=== PATIENT | male | born 1990 | race Caucasian/White ===

== ENCOUNTER 2024-05-13 08:19 | Inpatient (IN) | payer MEDICARE, SELFPAY ==
[2024-05-13 08:20] VITALS: BP 152/77; PULSE 123; RESP 20; TEMP 37.1; O2SAT 96
[2024-05-13 08:43] LABS: Basophils % 0.3 %; Hematocrit 34.8 % (37-53); Lymphocytes # 1.1 10^3/uL (0.8-4.8); Lymphocytes % 10.5 %; Mean Corpuscular Volume 87.9 fl (82-101); Mean Platelet Volume 10.3 fL (7.4-10.4); Monocytes # 0.7 10^3/uL (0.2-0.9); Monocytes % 7.2 %; Neutrophils # 8.22 10^3/uL (1.8-7.7); Neutrophils % 81.7 %; Nucleated Red Blood Cells % 0 %; Platelet Count 241 10^3/cmm (157-399); Red Blood Count 3.96 10^6/uL (3.85-5.65); Red Cell Distribution Width 13.4 % (12.1-15.1); White Blood Count 10.07 10^3/uL (3.29-11.43)
--- NOTE | 2024-05-13 08:54 | W.ED.PSYCHS ---
HPI - Psych General: Chief Complaint: Psychiatric Symptoms Stated Complaint: hallucinations Time Seen by Provider: 05/13/24 08:22 Source: patient Mode of arrival: EMS History of Present Illness: 33-year-old male presents to the emergency room via EMS with Alvino CLANCY accompanying. Uncertain exact details did not get report from EMS or law enforcement as to why they were called out to mention the nurses note is that the Alivno CLANCY was told by a neighbor that the patient uses drugs whenever he is able has the money. He is having significant auditory and visual hallucinations. He is not confrontational or agitated at this time. MD complaint: altered mental status Onset (ago): unknown Review of Systems General: Reports: ROS unobtainable due to mental status Physical Exam Const: ORIENTATION/CONSCIOUSNESS: Yes awake HENMT: COMMON NORMALS: normocephalic, atraumatic and hearing grossly normal bilaterally HEAD & SCALP: normocephalic and atraumatic Resp: COMMON NORMALS: normal respiratory effort, No retractions, No use of accessory muscles and clear to auscultation bilaterally AUSCULTATION: clear to auscultation bilaterally Cardio: COMMON NORMALS: regular rhythm and No murmurs present (Cardio) RATE: tachycardic RHYTHM: regular rhythm GI: COMMON NORMALS: Soft to palpation and No hepatosplenomegaly present AUSCULTATION: Yes normoactive bowel sounds PALPATION: Yes Soft to palpation, No Tenderness to palpation present (GI), No Guarding due to palpation present (GI) and Yes No hepatosplenomegaly present Extremity: COMMON NORMALS: normal to inspection, capillary refill normal, no clubbing, cyanosis or edema, no calf tenderness and no pedal edema Skin: COMMON NORMALS: no rashes or lesions noted GENERAL SKIN EXAM: no rashes or lesions noted Course Vital Signs: Vital signs: Vital Signs Temperature 98.8 F 05/13/24 08:20 Pulse Rate 123 H 05/13/24 08:20 Respiratory Rate 25 H 05/13/24 10:40 Blood Pressure 152/77 05/13/24 08:20 Pulse Oximetry 96 05/13/24 08:20 Oxygen Delivery Me thod Room Air 05/13/24 08:20 MDM - Psych Medical Decision Making Patient having acute psychosis with auditory and visual hallucinations. Suspect he may be the end of the influence of an hallucinogenic drug. Does not appear to be under the influence of methamphetamine. His exam and labs are otherwise unremarkable. Given his acute psychosis will place him on a 92-hour hold. Discussed Dr. Glover orders written. No known history of previous prescription for antipsychotic medications or hospitalizations reviewing his chart I do not see that he has been at [facility]. Differential Diagnosis Likely acute psychosis Lab Data 05/13/24 08:35 05/13/24 08:35 Laboratory Results WBC 10.07 10^3/uL (3.29-11.43) 05/13/24 08:35 RBC 3.96 10^6/uL (3.85-5.65) 05/13/24 08:35 Hgb 11.50 g/dL (11.27-16.99) 05/13/24 08:35 Hct 34.8 % (37-53) L 05/13/24 08:35 MCV 87.9 fl (82-101) 05/13/24 08:35 MCH 29.0 pg (27-33) 05/13/24 08:35 MCHC 33.0 g/dL (30-55) 05/13/24 08:35 RDW 13.4 % (12.1-15.1) 05/13/24 08:35 Plt Count 241 10^3/cmm (157-399) 05/13/24 08:35 MPV 10.3 fL (7.4-10.4) 05/13/24 08:35 Neut % (Auto) 81.7 % 05/13/24 08:35 Lymph % (Auto) 10.5 % 05/13/24 08:35 Hamilton % (Auto) 7.2 % 05/13/24 08:35 Eos % (Auto) 0.0 % 05/13/24 08:35 Baso % (Auto) 0.3 % 05/13/24 08:35 Neut # (Auto) 8.22 10^3/uL (1.8-7.7) H 05/13/24 08:35 Lymph # (Auto) 1.1 10^3/uL (0.8-4.8) 05/13/24 08:35 Hamilton # (Auto) 0.7 10^3/uL (0.2-0.9) 05/13/24 08:35 Eos # (Auto) 0.0 10^3/uL (0.0-0.8) 05/13/24 08:35 Baso # (Auto) 0.0 10^3/uL (0.0-0.1) 05/13/24 08:35 Nucleated RBC % (auto) 0 % 05/13/24 08:35 Nucleated RBCs # 0.0 /100WBC 05/13/24 08:35 Sodium 139 mmol/L (136-145) 05/13/24 08:35 Potassium 3.5 mmol/L (3.5-5.1) 05/13/24 08:35 Chloride 104 mmol/L (98-107) 05/13/24 08:35 Carbon Dioxide 21 mmol/L (22-29) L 05/13/24 08:35 Anion Gap 17.5 (5-19) 05/13/24 08:35 BUN 15 mg/dL (6-20) 05/13/24 08:35 Creatinine 0.9 mg/dL (0.7-1.2) 05/13/24 08:35 GFR Calculation 96.0 mL/min (90-130) 05/13/24 08:35 Glucose 115 mg/dL (65-115) 05/13/24 08:35 Calculated Osmolality 290 mOsm/kg (285-295) 05/13/24 08:35 Calcium 9.0 mg/dL (8.5-10.5) 05/13/24 08:35 Total Bilirubin 0.5 mg/dL (0.15-1.2) 05/13/24 08:35 AST 43 U/L (0-40) H 05/13/24 08:35 ALT 31 U/L (0-41) 05/13/24 08:35 Alkaline Phosphatase 77 U/L (40-130) 05/13/24 08:35 Total Protein 7.4 g/dL (6.6-8.7) 05/13/24 08:35 Albumin 4.3 g/dL (3.5-5.2) 05/13/24 08:35 Globulin 3.1 g/dL (1.3-4.6) 05/13/24 08:35 Salicylates < 0.3 mg/dL (3-10) L 05/13/24 08:35 Acetaminophen < 5.0 ug/mL (10-30) L 05/13/24 08:35 Ethyl Alcohol < 10 mg/dL (0-10) 05/13/24 08:35 No radiology studies performed this visit Discharge Plan Discharge Patient Disposition: Admitted As Inpatient Admit Provider: Eren Glover Clinical Impression: Acute psychosis Condition: Stable Coding Level of Care Code ED [employer] for Rose Holland
[2024-05-13 09:02] LABS: Alanine Aminotransferase 31 U/L (0-41); Albumin Level 4.3 g/dL (3.5-5.2); Alkaline Phosphatase 77 U/L (40-130); Anion Gap 17.5 (5-19); Aspartate Amino Transferase 43 U/L (0-40); Blood Urea Nitrogen 15 mg/dL (6-20); Carbon Dioxide 21 mmol/L (22-29); Chloride 104 mmol/L (98-107); Globulin 3.1 g/dL (1.3-4.6); Glucose 115 mg/dL (65-115); Osmolality Calculated 290 mOsm/kg (285-295); Potassium 3.5 mmol/L (3.5-5.1); Sodium 139 mmol/L (136-145); Total Bilirubin 0.5 mg/dL (0.15-1.2); Total Protein 7.4 g/dL (6.6-8.7)
[2024-05-13 09:09] LABS: Acetaminophen < 5.0 ug/mL (10-30); Salicylate < 0.3 mg/dL (3-10)
[2024-05-13 09:11] LABS: Alcohol Level < 10 mg/dL (0-10)
[2024-05-13] MEDS: LORazepam 2 mg/mL INJ 10 mL MDV IM (09:57)
--- NOTE | 2024-05-13 10:00 | PC.NURSE ---
pt very agitated, delusional. pt refuses to stay in ER room 9. x2 security at bedside. pt roaming in ER, talking to TVs. Dr. Fuentes notified and put in orders for Ativan 2mg IM. pt cooperative with staff redirection to admin Ativan. pt currently in room 9 with security.
[2024-05-13] MEDS: ziprasidone 20 mg/mL SDV IM (10:39)
[2024-05-13 10:40] VITALS: RESP 25
--- NOTE | 2024-05-13 11:26 | PC.NURSE ---
96 hr rights reviewed with patient @1025 with assistance of [facility] security officers Eliezer and Smith. Patient currently displays behavior suggesting he is under the influence of some substance. Patient verbalized understandment of rights when reviewed, but patient also making comments about megladonalong and other fictitious creatures. Patient currently experiencing AVH. Patient provided a drink, and asked to remain in room as he was trying to leave the ER when HS was attempting to serve 96 hr rights. Patient copy left with patient.
[2024-05-13 11:42] VITALS: BP 155/78; PULSE 116; RESP 18; TEMP 36.8; O2SAT 96
[2024-05-13 20:46] VITALS: RESP 16
[2024-05-14 06:00] VITALS: RESP 16
--- NOTE | 2024-05-14 10:00 | P.NPUHP_ITS ---
Providers/Chief Complaint 2 Admitting Physician: Eren Glover MD Chief Complaint: hallucinations HPI NPU History of Present Illness Sunday Walsh is a 33 year old male who presented to the emergency department with the following report: Chief Complaint: Psychiatric Symptoms Stated Complaint: hallucinations Time Seen by Provider: 05/13/24 08:22 Source: patient Mode of arrival: EMS History of Present Illness: 33-year-old male presents to the emergency room via EMS with [place] PD accompanying. Uncertain exact details did not get report from EMS or law enforcement as to why they were called out to mention the nurses note is that the [place] PD was told by a neighbor that the patient uses drugs whenever he is able has the money. He is having significant auditory and visual hallucinations. He is not confrontational or agitated at this time. MD complaint: altered mental status Onset (ago): unknown. He was admitted to the neuropsychiatric unit for definitive treatment of those issues. He is unknown to [facility] or the neuropsychiatric unit. He presented reporting: Chief complaint Patient reported coming to the hospital for reasons that were unclear. Patient presented today reporting that he is unaware of any allergies. He was guarded about answering questions. For example when asked where he lives he responded that the ghost writer should not worry about that. So questions were limited in his willingness to allow for prying into his privacy. After getting more comfortable with this ghost writer with some casual conversation we discussed the fact that he was on a hold. We discussed the fact that once we were clear that he was going to be safe we could talk about discharge. He reported that he was from [place] and that at some point before getting here he did have an ACT team which she reported made it so that they would come to him at his house and he would not have to go to the hospital as much. He reported that that was helpful and that he wanted to find out what resources existed around here and he would be comfortable with that assistance. We discussed that the social work team would be here on Thursday and they would be able to get information about his history such that they could talk about what resources exist in this area. He was very upset and resistant to the idea that people thought that he was under the influence of something. We discussed them noting him to have hallucinations and behaving strangely and he talked about this being related to him having his focus be out of balance. He could not really explain what that meant. He reported that he is a loner and he is starting to come out more and so this is part of that adjustment. But then he talked about for the last 20 or 25 years traveling the world are traveling around and having all these exposures at the point seeming to be quite grandiose about the experiences of his life but being very guarded about follow-up questions about what these things that he was saying actually meant. He reports that he does have some marijuana exposure but denies mushrooms or any other substances that would have been missed by a UDS. We discussed respecting his concerns about people prying and that we would take our time learning about his past treatments and hopefully we could discuss medications and any other treatment options that could be beneficial to his situation. Meds NPU Home Medications Medication Instructions Recorded Confirmed Last Taken Type Unable to Assess 05/13/24 05/13/24 Unknown History Allergies Allergy/AdvReac Type Severity Reaction Status Date / Time Unable to Assess Allergy Verified 05/13/24 11:45 Mental Status Exam 2 MSE Comments: This is an obese versus morbidly obese white male in hospital scrubs on with limited grooming and very limited eye contact often having his blanket over his head. Balding with long hair. No abnormal movements except for psychomotor agitation. Somewhat cooperative with exam in mild to moderate distress. Speech was slightly increased rate and normal volume. Mood described as okay, affect paranoid and slightly agitated. Thought process linear and occasionally organized. Thought content: Patient denied suicidal or homicidal ideation, there were no delusions reported but clear paranoid and possibly persecutory delusions noted as well as possible grandiose or bizarre delusions or ideas of reference, no reports of auditory or visual hallucinations. Attention and concentration were mostly intact and memory appeared somewhat unreliable but none were formally tested. He is alert and oriented x person and place. Insight and judgment are limited, impulse control is limited versus impaired. Vitals/I&O/Wt Last Vital Signs Temp 98.3 F 05/13/24 11:42 Pulse 116 H 05/13/24 11:42 Resp 16 05/14/24 06:00 BP 155/78 05/13/24 11:42 Pulse Ox 96 05/13/24 11:42 O2 Del Method Room Air 05/13/24 11:42 Weight last 48 hrs Weight 124.738 kg Data NPU 05/13/24 08:35 05/13/24 08:35 A&P Assessment and plan (1) Acute psychosis: Plan Patient is a 33-year-old white male admitted with reports of confusing and bizarre behavior consistent with some drugs of abuse but none that showed up in the UDS/drug screen who presents today denying any drug use other than may be THC but clearly having had previous psychiatric care. 1. Continue off of medications. Will evaluate for appropriate medications likely antipsychotic. 2. Encourage individual, group and milieu therapy. 3. Continue q-15 minute checks for safety.? 4.? Encourage sober living treatment at the highest level of care to which the patient is willing to commit. Involuntary Hold Information 2 96 Hour Hold: 96 Hour Involuntary Admission: Yes 96 Hour Hold Ending Date: 05/13/24 96 Hour Hold Ending Time: 10:00 Attestations NPU 2 Medical Necessity Statement*: Inpatient hospitalization is medically necessary and the clinically appropriate intervention at this time. We will monitor medications and make changes as indicated. He will be in the hospital for over 2 midnights. Likely length of stay 4 to 6 days. Coding Level of Care Code Acute Code for Chg Fwd Diagnoses Acute psychosis F23
--- NOTE | 2024-05-14 12:02 | PC.NURSE ---
NEW ORDERS RECEIVED FROM DR. BHATIA TO DISCONTINUE ONE TO ONE OBSERVATION. PT EDUCATED ON NEW ORDERS. SITTER REMOVED AT 1200 PM ORDERED. SUPPORT VOICED.
[2024-05-14 14:00] VITALS: BP 136/69; PULSE 113; RESP 20; TEMP 36.8; O2SAT 99
[2024-05-14 17:04] LABS: Add Urine Microscopic? YES; Bilirubin Urine 1+ (Negative); Blood Urine Neg (Negative); Glucose Urine UA Norm (Normal); Ketones Urine Negative (Negative); Leukocyte Esterase Urine Trace (Negative); Nitrate Urine Negative (Negative); Protein Urine Neg (Negative); Urine Appearance Clear (CLEAR); Urine Color Yellow (Yellow); Urobilinogen Urine 4 mg/dL (Negative); pH Urine 6 (5-7)
[2024-05-14 17:05] LABS: Add Urine Culture? No; Bacteria Urine TRACE /hpf; Mucus Urine 2+ /hpf; WBC Urine RARE /hpf (0-5)
[2024-05-14 17:08] LABS: Amphetamines Screen Urine Negative (Negative); Barbiturates Screen Urine Negative (Negative); Benzodiazepines Screen Urine Positive (Negative); Cocaine Screen Urine Negative (Negative); Opiate Screen Urine Negative (Negative); PCP Screen Urine Negative (Negative); THC Screen Urine Positive (Negative)
[2024-05-14 20:04] VITALS: BP 116/79; PULSE 88; RESP 18; O2SAT 92
[2024-05-15 06:00] VITALS: BP 144/92; PULSE 73; RESP 16; O2SAT 97
--- NOTE | 2024-05-15 09:13 | PC.NURSE ---
Patient denies si/hi and avh this morning. He states he is worried about his 3 kitties that he has at home. He has asked multiple staff about when the doctor will be in so he can ask him for tramadol. 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
--- NOTE | 2024-05-15 12:40 | P.NPUPN_ITS ---
Subjective NPU 2 Subjective: Patient presented today reporting that he is doing fine. He continued to focus on discharge sooner rather than later. He continued to focus on somatic complaints and expressed an interest in getting tramadol prescribed reporting that he has significant pain. We did discuss medications and he reported previously being on Abilify Maintena 300 mg q. monthly but reports that it ceased being effective. We discussed restarting Abilify Maintena at 400 mg he reports that that was always too much. He reports that that it is made him tired. He reported that Invega and other medications in that class were never helpful. He reports that his outpatient psychiatrist was working with him to get to a point where he was off of everything except for Adderall which he reports is very helpful. Mental Status Exam 2 MSE Comments: This is an obese versus morbidly obese white male in hospital scrubs on with limited grooming and very limited eye contact often having his blanket over his head. Balding with long hair. No abnormal movements except for psychomotor agitation. Somewhat cooperative with exam in mild to moderate distress. Speech was slightly increased rate and normal volume. Mood described as okay, affect paranoid and slightly agitated. Thought process linear and occasionally organized. Thought content: Patient denied suicidal or homicidal ideation, there were no delusions reported but clear paranoid and possibly persecutory delusions noted as well as possible grandiose or bizarre delusions or ideas of reference, no reports of auditory or visual hallucinations. Attention and concentration were mostly intact and memory appeared somewhat unreliable but none were formally tested. He is alert and oriented x person and place. Insight and judgment are limited, impulse control is limited versus impaired. Vitals/I&O/Wt Last Vital Signs Temp 98.2 F 05/14/24 14:00 Pulse 73 05/15/24 06:00 Resp 16 05/15/24 06:00 BP 144/92 05/15/24 06:00 Pulse Ox 97 05/15/24 06:00 O2 Del Method Room Air 05/15/24 06:00 Weight last 48 hrs Weight 157.453 kg Data NPU 05/13/24 08:35 05/13/24 08:35 A&P Assessment and plan (1) Acute psychosis: Plan Patient is a 33-year-old white male admitted with reports of confusing and bizarre behavior consistent with some drugs of abuse but none that showed up in the UDS/drug screen who presents today denying any drug use other than may be THC but clearly having had previous psychiatric care. 1. Continue off of medications. Will evaluate for appropriate medications likely antipsychotic. 2. Encourage individual, group and milieu therapy. 3. Continue q-15 minute checks for safety.? 4.? Encourage sober living treatment at the highest level of care to which the patient is willing to commit. Involuntary Hold Information 2 96 Hour Hold: 96 Hour Involuntary Admission: Yes 96 Hour Hold Ending Date: 05/13/24 96 Hour Hold Ending Time: 10:00 Attestations NPU 2 Medical Necessity Statement*: Inpatient hospitalization is medically necessary and the clinically appropriate intervention at this time. We will monitor medications and make changes as indicated. Likely length of stay 3-5 days. Coding Level of Care Code Acute Code for Chg Fwd Diagnoses Acute psychosis F23
[2024-05-15 14:00] VITALS: BP 141/88; PULSE 92; RESP 20; TEMP 36.9; O2SAT 98
[2024-05-15 20:04] VITALS: BP 133/90; PULSE 91; RESP 18; O2SAT 97
[2024-05-15] MEDS: cetylpyridinium Lozenge 1 EACH MUCOUS MEM (23:12)
[2024-05-16 06:00] VITALS: BP 132/85; PULSE 90; RESP 17; O2SAT 100
[2024-05-16] MEDS: ibuprofen 600 mg Tablet PO (07:13)
[2024-05-16] MEDS: OLANZapine 5 mg ODT PO ×2 (11:08→22:24)
[2024-05-16 14:00] VITALS: BP 121/76; PULSE 63; RESP 17; TEMP 36.6; O2SAT 96
--- NOTE | 2024-05-16 18:07 | PC.NURSE ---
STAFF PERFORMED RANDOM ROOM CHECK. NO OUTSIDE CONTRABAND WAS FOUND IN PT ROOM OR AREA. PT WAS COOPERATIVE WITH ROOM SEARCH.
--- NOTE | 2024-05-16 21:30 | P.NPUPN_ITS ---
Subjective NPU 2 Subjective: Patient presented today reporting that he is doing okay. He reports working with the social work team on some options. He continues to be resistant to the medication but seems to be more open to the possibility. He reports that they are working on some different options and he felt optimistic about being here versus how he had been feeling over the weekend. Mental Status Exam 2 MSE Comments: This is an obese versus morbidly obese white male in hospital scrubs on with limited grooming and very limited eye contact often having his blanket over his head. Balding with long hair. No abnormal movements except for psychomotor agitation. Somewhat cooperative with exam in mild distress. Speech was slightly increased rate and normal volume. Mood described as okay, affect congruent and less guarded. Thought process linear and occasionally organized. Thought content: Patient denied suicidal or homicidal ideation, there were no delusions reported but clear paranoid and possibly persecutory delusions noted as well as possible grandiose or bizarre delusions or ideas of reference, no reports of auditory or visual hallucinations. Attention and concentration were mostly intact and memory appeared somewhat unreliable but none were formally tested. He is alert and oriented x person and place. Insight and judgment are limited, impulse control is limited versus impaired. Vitals/I&O/Wt Last Vital Signs Temp 98 F 05/16/24 14:00 Pulse 63 05/16/24 14:00 Resp 17 05/16/24 14:00 BP 121/76 05/16/24 14:00 Pulse Ox 96 05/16/24 14:00 O2 Del Method Room Air 05/16/24 06:00 Weight last 48 hrs Weight 157.453 kg Data NPU 05/13/24 08:35 05/13/24 08:35 A&P Assessment and plan (1) Acute psychosis: Plan Patient is a 33-year-old white male admitted with reports of confusing and bizarre behavior consistent with some drugs of abuse but none that showed up in the UDS/drug screen who presents today denying any drug use other than may be THC but clearly having had previous psychiatric care. 1. Continue off of medications. Continue to consider antipsychotic 2. Encourage individual, group and milieu therapy. 3. Continue q-15 minute checks for safety.? 4.? Encourage sober living treatment at the highest level of care to which the patient is willing to commit. Involuntary Hold Information 2 96 Hour Hold: 96 Hour Involuntary Admission: Yes 96 Hour Hold Ending Date: 05/13/24 96 Hour Hold Ending Time: 10:00 Attestations NPU 2 Medical Necessity Statement*: Inpatient hospitalization is medically necessary and the clinically appropriate intervention at this time. We will monitor medications and make changes as indicated. Likely length of stay 2-4 days. Coding Level of Care Code Acute Code for Chg Fwd Diagnoses Acute psychosis F23
[2024-05-16 22:00] VITALS: BP 144/72; PULSE 84; RESP 16; TEMP 36.6; O2SAT 96
[2024-05-17 06:00] VITALS: BP 124/84; PULSE 96; RESP 16; O2SAT 99
[2024-05-17] MEDS: acetaminophen 325 mg Tablet 650 MG PO (08:03)
[2024-05-17] MEDS: OLANZapine 5 mg ODT PO (08:34)
[2024-05-17 12:55] VITALS: BP 124/84; PULSE 96; RESP 16; O2SAT 99
--- NOTE | 2024-05-17 13:05 | P.NPUDS_ITS ---
Diagnoses at Discharge Discharge Diagnosis (1) Acute psychosis: Status: Acute Reason for Visit Reason for Visit: hallucinations Involuntary Hold Information 96 Hour Hold: 96 Hour Involuntary Admission: Yes 96 Hour Hold Ending Date: 05/13/24 96 Hour Hold Ending Time: 10:00 Mental Status Exam MSE Comments: This is an obese versus morbidly obese white male in hospital scrubs on with limited grooming and very limited eye contact often having his blanket over his head. Balding with long hair. No abnormal movements except for psychomotor agitation. Somewhat cooperative with exam in mild distress. Speech was slightly increased rate and normal volume. Mood described as okay, affect congruent and less guarded. Thought process linear and occasionally organized. Thought content: Patient denied suicidal or homicidal ideation, there were no delusions reported but clear paranoid and possibly persecutory delusions noted as well as possible grandiose or bizarre delusions or ideas of reference, no reports of auditory or visual hallucinations. Attention and concentration were mostly intact and memory appeared somewhat unreliable but none were formally tested. He is alert and oriented x person and place. Insight and judgment are limited, impulse control is limited versus impaired. Discharge Data Studies Completed and Pending: Laboratory Results WBC 10.07 10^3/uL (3. 29-11.43) 05/13/24 08:35 RBC 3.96 10^6/uL (3.8 5-5.65) 05/13/24 08:35 Hgb 11.50 g/dL (11.27 -16.99) 05/13/24 08:35 Hct 34.8 % (37-53) L 05/13/24 08:35 MCV 87.9 fl (82-101) 05/13/24 08:35 MCH 29.0 pg (27-33) 05/13/24 08:35 MCHC 33.0 g/dL (30-55) 05/13/24 08:35 RDW 13.4 % (12.1-15.1 ) 05/13/24 08:35 Plt Count 241 10^3/cmm (157 -399) 05/13/24 08:35 MPV 10.3 fL (7.4-10.4 ) 05/13/24 08:35 Neut % (Auto) 81.7 % 05/13/24 08:35 Lymph % (Auto) 10.5 % 05/13/24 08:35 [place] % (Auto) 7.2 % 05/13/24 08:35 Eos % (Auto) 0.0 % 05/13/24 08:35 Baso % (Auto) 0.3 % 05/13/24 08:35 Neut # (Auto) 8.22 10^3/uL (1.8 -7.7) H 05/13/24 08:35 Lymph # (Auto) 1.1 10^3/uL (0.8- 4.8) 05/13/24 08:35 [place] # (Auto) 0.7 10^3/uL (0.2- 0.9) 05/13/24 08:35 Eos # (Auto) 0.0 10^3/uL (0.0- 0.8) 05/13/24 08:35 Baso # (Auto) 0.0 10^3/uL (0.0- 0.1) 05/13/24 08:35 Nucleated RBC % (a uto) 0 % 05/13/24 08:35 Nucleated RBCs # 0.0 /100WBC 05/13/24 08:35 Sodium 139 mmol/L (136-1 45) 05/13/24 08:35 Potassium 3.5 mmol/L (3.5-5 .1) 05/13/24 08:35 Chloride 104 mmol/L (98-10 7) 05/13/24 08:35 Carbon Dioxide 21 mmol/L (22-29) L 05/13/24 08:35 Anion Gap 17.5 (5-19) 05/13/24 08:35 BUN 15 mg/dL (6-20) 05/13/24 08:35 Creatinine 0.9 mg/dL (0.7-1. 2) 05/13/24 08:35 GFR Calculation 96.0 mL/min (90-1 30) 05/13/24 08:35 Glucose 115 mg/dL (65-115 ) 05/13/24 08:35 Calculated Osmolal ity 290 mOsm/kg (285- 295) 05/13/24 08:35 Calcium 9.0 mg/dL (8.5-10 .5) 05/13/24 08:35 Total Bilirubin 0.5 mg/dL (0.15-1 .2) 05/13/24 08:35 AST 43 U/L (0-40) H 05/13/24 08:35 ALT 31 U/L (0-41) 05/13/24 08:35 Alkaline Phosphata se 77 U/L (40-130) 05/13/24 08:35 Total Protein 7.4 g/dL (6.6-8.7 ) 05/13/24 08:35 Albumin 4.3 g/dL (3.5-5.2 ) 05/13/24 08:35 Globulin 3.1 g/dL (1.3-4.6 ) 05/13/24 08:35 Urine Color Yellow (Yellow) 05/14/24 16:27 Urine Appearance Clear (CLEAR) 05/14/24 16:27 Urine pH 6 (5-7) 05/14/24 16:27 Ur Specific Gravit y 1.020 (1.005-1.0 30) 05/14/24 16:27 Urine Protein Neg (Negative) 05/14/24 16:27 Urine Glucose (UA) Norm (Normal) 05/14/24 16:27 Urine Ketones Negative (Negati ve) 05/14/24 16:27 Urine Blood Neg (Negative) 05/14/24 16:27 Urine Nitrate Negative (Negati ve) 05/14/24 16:27 Urine Bilirubin 1+ (Negative) H 05/14/24 16:27 Urine Urobilinogen 4 mg/dL (Negative ) H 05/14/24 16:27 Ur Leukocyte [place] Trace (Negative) H 05/14/24 16:27 Urine RBC None /hpf (0-2) 05/14/24 16:27 Urine WBC Rare /hpf (0-5) 05/14/24 16:27 Ur Squamous Epith Cells None /hpf (0-5) 05/14/24 16:27 Amorphous Sediment Not Reportable 05/14/24 16:27 Urine Bacteria Trace /hpf (NONE) 05/14/24 16:27 Urine Mucus 2+ /hpf 05/14/24 16:27 Salicylates < 0.3 mg/dL (3-10 ) L 05/13/24 08:35 Urine Opiates Scre en Negative ng/mL (N egative) 05/14/24 16:27 Acetaminophen < 5.0 ug/mL (10-3 0) L 05/13/24 08:35 Ur Barbiturates Sc reen Negative ng/mL (N egative) 05/14/24 16:27 Ur Phencyclidine S crn Negative ng/mL (N egative) 05/14/24 16:27 Ur Amphetamines Sc reen Negative ng/mL (N egative) 05/14/24 16:27 U Benzodiazepines Scrn Positive ng/mL (N egative) H 05/14/24 16:27 Urine Cocaine Scre en Negative ng/mL (N egative) 05/14/24 16:27 U Marijuana (THC) Screen Positive ng/mL (N egative) H 05/14/24 16:27 Ethyl Alcohol < 10 mg/dL (0-10) 05/13/24 08:35 Vitals: Last Vital Signs Temp 97.9 F 05/16/24 22:00 Pulse 96 05/17/24 12:55 Resp 16 05/17/24 12:55 BP 124/84 05/17/24 12:55 Pulse Ox 99 05/17/24 12:55 O2 Del Method Room Air 05/17/24 06:00 Discharge Plan Discharge Patient Disposition: Home Condition: Stable Prescriptions: No Action Unable to Assess Discharge Orders: Discharge Order (Routine); Ordered 05/17/24 Ordered By: Eren Glover Discharge Diet: Regular Discharge Activity: Resume usual activity Patient Instructions: Help Prevent Suicide (DC), Opioid Safety Discharge Attestations [facility]PU Time Spent in Discharge Care*: less than 30 min Specific Discharge Activities: Specific discharge activities: educating patient, discussing with correctional casework specialist/social workers/dc planners, documenting/other paperwork and evaluating patient/reviewing data Coding Level of Care Code Acute Code for Chg Fwd Diagnoses Acute psychosis F23
== END 2024-05-17 15:35 | disposition home or self-care (01) | DRG 885 ==
LOC: ER 08:55 → NP 10:05
PROVIDERS: Admitting Provider Psychiatry & Neurology Psychiatry; Emergency Provider Family Medicine; Visit Provider Psychiatry & Neurology Psychiatry
DX: F23 Brief psychotic disorder (principal)
CPT/HCPCS: 36415; 80053; 80306; 80307; 81001; 85025; 96372; 97150; 97165; 99285; J2060; J3486

== ENCOUNTER 2024-06-05 02:27 | Emergency (ER) | payer MEDICARE, SELFPAY ==
[2024-06-05 02:28] VITALS: BP 168/101; PULSE 120; RESP 20; TEMP 37; O2SAT 98; BMI 52.4
[2024-06-05] MEDS: ziprasidone 20 mg/mL SDV IM (02:49)
[2024-06-05] MEDS: LORazepam 2 mg/mL INJ 1 mL IM (02:49)
[2024-06-05] MEDS: water for injection-sterile 10 ML 1.2 ML (02:51)
[2024-06-05 02:58] LABS: Basophils % 0.2 %; Eosinophils % 0.1 %; Hematocrit 37.5 % (37-53); Lymphocytes # 1.2 10^3/uL (0.8-4.8); Lymphocytes % 8.2 %; Mean Corpuscular HGB Conc 33.3 g/dL (30-55); Mean Corpuscular Hemoglobin 28.6 pg (27-33); Mean Corpuscular Volume 85.8 fl (82-101); Mean Platelet Volume 10.7 fL (7.4-10.4); Monocytes # 1.1 10^3/uL (0.2-0.9); Monocytes % 7.9 %; Neutrophils # 11.76 10^3/uL (1.8-7.7); Neutrophils % 83.2 %; Nucleated Red Blood Cells % 0 %; Platelet Count 323 10^3/cmm (157-399); Red Blood Count 4.37 10^6/uL (3.85-5.65); Red Cell Distribution Width 13.2 % (12.1-15.1); White Blood Count 14.14 10^3/uL (3.29-11.43)
[2024-06-05 03:17] LABS: Alanine Aminotransferase 34 U/L (0-41); Albumin Level 4.6 g/dL (3.5-5.2); Alkaline Phosphatase 80 U/L (40-130); Anion Gap 20.6 (5-19); Aspartate Amino Transferase 33 U/L (0-40); Blood Urea Nitrogen 32 mg/dL (6-20); Calcium 8.9 mg/dL (8.5-10.5); Carbon Dioxide 18 mmol/L (22-29); Chloride 98 mmol/L (98-107); Creatinine Clr Calc Pharmacy 111.2813; Globulin 3.3 g/dL (1.3-4.6); Glomerular Filtration Rate 57.7 mL/min (90-130); Glucose 123 mg/dL (65-115); Osmolality Calculated 284 mOsm/kg (285-295); Potassium 3.6 mmol/L (3.5-5.1); Sodium 133 mmol/L (136-145); Total Bilirubin 0.7 mg/dL (0.15-1.2); Total Protein 7.9 g/dL (6.6-8.7)
[2024-06-05 03:19] LABS: Acetaminophen < 5.0 ug/mL (10-30); Alcohol Level < 10 mg/dL (0-10); Salicylate < 0.3 mg/dL (3-10)
[2024-06-05 03:20] LABS: Add Urine Microscopic? YES; Amorphous Sediment Urine 1+ /hpf; Bacteria Urine 2+ /hpf; Bilirubin Urine 1+ (Negative); Blood Urine Neg (Negative); Glucose Urine UA Norm (Normal); Hyaline Casts Urine 15-25 /lpf; Ketones Urine 1+ (Negative); Leukocyte Esterase Urine Negative (Negative); Mucus Urine 1+ /hpf; Nitrate Urine Negative (Negative); Protein Urine 1+ (Negative); RBC Urine 0-4 /hpf (0-2); Specific Gravity, Urine 1.025 (1.005-1.030); Squamous Epithelial Cell Urine 0-4 /hpf (0-5); Urine Appearance Clear (CLEAR); Urine Color Dark Yellow (Yellow); Urobilinogen Urine 4 mg/dL (Negative); WBC Urine 0-4 /hpf (0-5); pH Urine 5 (5-7)
[2024-06-05 03:21] LABS: Amphetamines Screen Urine Positive (Negative); Barbiturates Screen Urine Negative (Negative); Benzodiazepines Screen Urine Negative (Negative); Cocaine Screen Urine Negative (Negative); Opiate Screen Urine Negative (Negative); PCP Screen Urine Negative (Negative); THC Screen Urine Positive (Negative)
--- NOTE | 2024-06-05 03:51 | W.ED.PSYCHS ---
HPI - Psych General: Chief Complaint: Psychiatric Symptoms Stated Complaint: MHE Time Seen by Provider: 06/05/24 02:30 History of Present Illness: 33-year-old male with a history is difficult to establish. He is brought in by EMS with police escort because of bizarre behaviors and statements. He is awake and talking, but makes random bizarre statements, essentially word salad. He answers some questions appropriately, and follows some direction at times. Review of Systems General: Reports: ROS unobtainable due to medical condition and Other (Patient at this point is an unreliable historian) Physical Exam Const: EXAM LIMITATIONS: altered mental status and behavioral limitations GENERAL APPEARANCE: disheveled; not combative NUTRITIONAL APPEARANCE: obese ORIENTATION/CONSCIOUSNESS: Yes awake and Yes oriented to person; not oriented to time HENMT: COMMON NORMALS: normocephalic and atraumatic HEAD & SCALP: normocephalic and atraumatic FACE & SINUS: normal facial exam Eye: COMMON NORMALS: Equal, round and reactive pupils present and EOMs intact bilaterally PUPIL: Yes Equal, round and reactive pupils present Neck/C-Spine: GENERAL: Yes trachea midline Chest: CHEST: Yes Symmetrical chest wall rise Resp: COMMON NORMALS: normal respiratory effort, No use of accessory muscles and clear to auscultation bilaterally AUSCULTATION: clear to auscultation bilaterally Cardio: COMMON NORMALS: regular rate and regular rhythm RATE: regular rate RHYTHM: regular rhythm Extremity: COMMON NORMALS: no pedal edema Neuro: SENSORIUM/ORIENTATION: Yes oriented to person and No oriented to time GAIT: Yes Wide-based gait present Psych: APPEARANCE: Yes disheveled ATTITUDE: Yes bizarre ACTIVITY/MOTOR BEHAVIOR: Yes psychomotor agitation and Yes fidgeting SPEECH: Yes excessive and Yes Pressured speech present THOUGHT PROCESS: disorganized and Word salad present (speech) THOUGHT CONTENT: Yes Hallucination(s) present auditory ATTENTION/CONCENTRATION: Yes attention grossly impaired and Yes concentration grossly impaired Course Vital Signs: Vital signs: Vital Signs Temperature 98.6 F 06/05/24 02:28 Pulse Rate 91 06/05/24 08:38 Respiratory Rate 20 H 06/05/24 02:28 Blood Pressure 168/101 06/05/24 08:38 Pulse Oximetry 98 06/05/24 08:38 MDM - Psych Medical Decision Making The patient is clearly intoxicated. Urine drug screen is positive for amphetamines and marijuana. Negative for alcohol. White blood cell count is 14. Creatinine is 1.4, bicarbonate 18. He is given Geodon and Ativan on arrival with some improvement in his symptoms. He is clearly responding to hallucinations in the room and is carrying on conversations with himself. He has a recent admission to the [facility] for similar behaviors. He was not interested in medication at that time. He also did not appear interested in stopping the use of illicit drugs at that point. After medication, patient rested for quite a while. He became more appropriate. He was discharged in stable condition. He is not homicidal or suicidal. Lab Data 06/05/24 02:52 06/05/24 02:52 Laboratory Results WBC 14.14 10^3/uL (3.29-11.43) H 06/05/24 02:52 RBC 4.37 10^6/uL (3.85-5.65) 06/05/24 02:52 Hgb 12.50 g/dL (11.27-16.99) 06/05/24 02:52 Hct 37.5 % (37-53) 06/05/24 02:52 MCV 85.8 fl (82-101) 06/05/24 02:52 MCH 28.6 pg (27-33) 06/05/24 02:52 MCHC 33.3 g/dL (30-55) 06/05/24 02:52 RDW 13.2 % (12.1-15.1) 06/05/24 02:52 Plt Count 323 10^3/cmm (157-399) 06/05/24 02:52 MPV 10.7 fL (7.4-10.4) H 06/05/24 02:52 Neut % (Auto) 83.2 % 06/05/24 02:52 Lymph % (Auto) 8.2 % 06/05/24 02:52 [place] % (Auto) 7.9 % 06/05/24 02:52 Eos % (Auto) 0.1 % 06/05/24 02:52 Baso % (Auto) 0.2 % 06/05/24 02:52 Neut # (Auto) 11.76 10^3/uL (1.8-7.7) H 06/05/24 02:52 Lymph # (Auto) 1.2 10^3/uL (0.8-4.8) 06/05/24 02:52 [place] # (Auto) 1.1 10^3/uL (0.2-0.9) H 06/05/24 02:52 Eos # (Auto) 0.0 10^3/uL (0.0-0.8) 06/05/24 02:52 Baso # (Auto) 0.0 10^3/uL (0.0-0.1) 06/05/24 02:52 Nucleated RBC % (auto) 0 % 06/05/24 02:52 Nucleated RBCs # 0.0 /100WBC 06/05/24 02:52 Sodium 133 mmol/L (136-145) L 06/05/24 02:52 Potassium 3.6 mmol/L (3.5-5.1) 06/05/24 02:52 Chloride 98 mmol/L (98-107) 06/05/24 02:52 Carbon Dioxide 18 mmol/L (22-29) L 06/05/24 02:52 Anion Gap 20.6 (5-19) H 06/05/24 02:52 BUN 32 mg/dL (6-20) H 06/05/24 02:52 Creatinine 1.4 mg/dL (0.7-1.2) H 06/05/24 02:52 GFR Calculation 57.7 mL/min (90-130) L 06/05/24 02:52 Glucose 123 mg/dL (65-115) H 06/05/24 02:52 Calculated Osmolality 284 mOsm/kg (285-295) L 06/05/24 02:52 Calcium 8.9 mg/dL (8.5-10.5) 06/05/24 02:52 Total Bilirubin 0.7 mg/dL (0.15-1.2) 06/05/24 02:52 AST 33 U/L (0-40) 06/05/24 02:52 ALT 34 U/L (0-41) 06/05/24 02:52 Alkaline Phosphatase 80 U/L (40-130) 06/05/24 02:52 Total Protein 7.9 g/dL (6.6-8.7) 06/05/24 02:52 Albumin 4.6 g/dL (3.5-5.2) 06/05/24 02:52 Globulin 3.3 g/dL (1.3-4.6) 06/05/24 02:52 Urine Color Dark yellow (Yellow) A 06/05/24 03:02 Urine Appearance Clear (CLEAR) 06/05/24 03:02 Urine pH 5 (5-7) 06/05/24 03:02 Ur Specific [place] 1.025 (1.005-1.030) 06/05/24 03:02 Urine Protein 1+ (Negative) H 06/05/24 03:02 Urine Glucose (UA) Norm (Normal) 06/05/24 03:02 Urine Ketones 1+ (Negative) H 06/05/24 03:02 Urine Blood Neg (Negative) 06/05/24 03:02 Urine Nitrate Negative (Negative) 06/05/24 03:02 Urine Bilirubin 1+ (Negative) H 06/05/24 03:02 Urine Urobilinogen 4 mg/dL (Negative) H 06/05/24 03:02 Ur Leukocyte Esterase Negative (Negative) 06/05/24 03:02 Urine RBC 0-4 /hpf (0-2) H 06/05/24 03:02 Urine WBC 0-4 /hpf (0-5) H 06/05/24 03:02 Ur Squamous Epith Cells 0-4 /hpf (0-5) H 06/05/24 03:02 Amorphous Sediment 1+ /hpf 06/05/24 03:02 Urine Bacteria 2+ /hpf (NONE) H 06/05/24 03:02 Hyaline Casts 15-25 /lpf H 06/05/24 03:02 Urine Mucus 1+ /hpf 06/05/24 03:02 Salicylates < 0.3 mg/dL (3-10) L 06/05/24 02:52 Urine Opiates Screen Negative ng/mL (Negative) 06/05/24 03:02 Acetaminophen < 5.0 ug/mL (10-30) L 06/05/24 02:52 Ur Barbiturates Screen Negative ng/mL (Negative) 06/05/24 03:02 Ur Phencyclidine Scrn Negative ng/mL (Negative) 06/05/24 03:02 Ur Amphetamines Screen Positive ng/mL (Negative) H 06/05/24 03:02 U Benzodiazepines Scrn Negative ng/mL (Negative) 06/05/24 03:02 Urine Cocaine Screen Negative ng/mL (Negative) 06/05/24 03:02 U Marijuana (THC) Screen Positive ng/mL (Negative) H 06/05/24 03:02 Ethyl Alcohol < 10 mg/dL (0-10) 06/05/24 02:52 No radiology studies performed this visit Discharge Plan Discharge Patient Disposition: Home Clinical Impression: Drug-induced psychotic disorder, Amphetamine adverse reaction Condition: Stable Prescriptions: No Action Unable to Assess Discharge Orders: Discharge ED (Routine); Ordered 06/05/24 Ordered By: Dwayne Barragan Patient Instructions: Methamphetamine Use Disorder (ED), Psychotic Disorder (ED), Opioid Safety, Pain Management Coding Level of Care Code ED Supervisor [employer] for Rose Holland
[2024-06-05 08:38] VITALS: BP 168/101; PULSE 91; O2SAT 98
== END 2024-06-05 08:40 | disposition home or self-care (01) ==
PROVIDERS: Emergency Provider Emergency Medicine
DX: T43.621A Poisoning by amphetamines, accidental (unintentional), initial encounter (principal); F23 Brief psychotic disorder
CPT/HCPCS: 80053; 80306; 80307; 81001; 85025; 96372; 99284; J2060; J3486

== ENCOUNTER 2024-07-29 06:19 | Emergency (ER) | payer MEDICARE, SELFPAY ==
[2024-07-29 06:27] VITALS: BP 156/93; PULSE 112; RESP 20; TEMP 36.6; O2SAT 100; BMI 41.3
--- NOTE | 2024-07-29 06:34 | ED.C_ITS ---
HPI - Psych 2 General: Chief Complaint: Psychiatric Symptoms Stated Complaint: SI Time Seen by Provider: 07/29/24 06:23 History of Present Illness: 34-year-old male presents emergency room in custody of 1 enforcement. He lives at the [facility]. [place] is called will return the patient he was negative except with recyclables genitalia. He is having auditory and visual hallucinations. He has a string of tangential thoughts. He will answer some questions and follow simple directions. He had told the officers that he had been using acid. They have encountered him in the past having used drugs. Related Data Home Medications Medication Instructions Recorded Confirmed Unable to Assess 05/13/24 07/29/24 Allergies Allergy/AdvReac Type Severity Reaction Status Date / Time Unable to Assess Allergy Verified 05/13/24 11:45 Review of Systems 2 General: Reports: Other (Patient answers no to all questions, is under the influence) Const: Denies: fever(s) or chills Card: Denies: chest pain Resp: Denies: dyspnea GI: Denies: abdominal pain : Denies: dysuria, urinary frequency or urinary urgency Musc: Denies: neck pain or back pain Physical Exam 2 Const: GENERAL APPEARANCE: cooperative and disheveled O RIENTATION/CONSCIOUSNESS: Yes awake HENMT: COMMON NORMALS: normocephalic, atraumatic and hearing grossly normal bilaterally HEAD & SCALP: normocephalic and atraumatic Resp: COMMON NORMALS: normal respiratory effort, No retractions, No use of accessory muscles and clear to auscultation bilaterally AUSCULTATION: clear to auscultation bilaterally Cardio: COMMON NORMALS: regular rate, regular rhythm and No murmurs present (Cardio) RATE: regular rate RHYTHM: regular rhythm GI: COMMON NORMALS: Soft to palpation and No hepatosplenomegaly present A USCULTATION: Yes normoactive bowel sounds PALPATION: Yes Soft to palpation, No Tenderness to palpation present (GI), No Guarding due to palpation present (GI) and Yes No hepatosplenomegaly present Extremity: COMMON NORMALS: normal to inspection, capillary refill normal, no clubbing, cyanosis or edema, no calf tenderness and no pedal edema Psych: APPEARANCE: Yes unkempt ATTITUDE: Yes agitated ACTIVITY/MOTOR BEHAVIOR: Yes psychomotor slowing and Yes Avoids eye contact (attititude/behavior) SPEECH: Yes excessive THOUGHT PROCESS: disorganized, Loose association thought process present and Tangential thought process present Skin: COMMON NORMALS: no rashes or lesions noted GENERAL SKIN EXAM: no rashes or lesions noted Course 2 Vital Signs: Vital signs: Vital Signs Temperature 98 F 07/29/24 06:27 Pulse Rate 107 H 07/29/24 06:43 Respiratory Rate 16 07/29/24 06:43 Blood Pressure 156/93 07/29/24 06:27 Pulse Oximetry 99 07/29/24 06:43 Oxygen Delivery Me thod Room Air 07/29/24 06:43 MDM - Psych Medical Decision Making Acute psychosis most likely drug-induced. Patient has mild acute kidney injury although his creatinine is about at his baseline slight elevation anion gap. BUN this will be corrected with IV fluids. Discussed with on-call psychiatry they will have a bed available later today. Will admit for acute psychosis Lab Data 07/29/24 06:45 07/29/24 06:45 Laboratory Results WBC 10.47 10^3/uL (3.29-11.43) 07/29/24 06:45 RBC 4.54 10^6/uL (3.85-5.65) 07/29/24 06:45 Hgb 12.80 g/dL (11.27-16.99) 07/29/24 06:45 Hct 38.9 % (37-53) 07/29/24 06:45 MCV 85.7 fl (82-101) 07/29/24 06:45 MCH 28.2 pg (27-33) 07/29/24 06:45 MCHC 32.9 g/dL (30-55) 07/29/24 06:45 RDW 13.4 % (12.1-15.1) 07/29/24 06:45 Plt Count 244 10^3/cmm (157-399) 07/29/24 06:45 MPV 10.8 fL (7.4-10.4) H 07/29/24 06:45 Neut % (Auto) 79.2 % 07/29/24 06:45 Lymph % (Auto) 10.6 % 07/29/24 06:45 [place] % (Auto) 8.9 % 07/29/24 06:45 Eos % (Auto) 0.7 % 07/29/24 06:45 Baso % (Auto) 0.3 % 07/29/24 06:45 Neut # (Auto) 8.30 10^3/uL (1.8-7.7) H 07/29/24 06:45 Lymph # (Auto) 1.1 10^3/uL (0.8-4.8) 07/29/24 06:45 [place] # (Auto) 0.9 10^3/uL (0.2-0.9) 07/29/24 06:45 Eos # (Auto) 0.1 10^3/uL (0.0-0.8) 07/29/24 06:45 Baso # (Auto) 0.0 10^3/uL (0.0-0.1) 07/29/24 06:45 Nucleated RBC % (auto) 0 % 07/29/24 06:45 Nucleated RBCs # 0.0 /100WBC 07/29/24 06:45 Sodium 136 mmol/L (136-145) 07/29/24 06:45 Potassium 3.4 mmol/L (3.5-5.1) L 07/29/24 06:45 Chloride 101 mmol/L (98-107) 07/29/24 06:45 Carbon Dioxide 19 mmol/L (22-29) L 07/29/24 06:45 Anion Gap 19.4 (5-19) H 07/29/24 06:45 BUN 28 mg/dL (6-20) H 07/29/24 06:45 Creatinine 1.3 mg/dL (0.7-1.2) H 07/29/24 06:45 GFR Calculation 62.5 mL/min (90-130) L 07/29/24 06:45 Glucose 122 mg/dL (65-115) H 07/29/24 06:45 Calculated Osmolality 289 mOsm/kg (285-295) 07/29/24 06:45 Calcium 9.2 mg/dL (8.5-10.5) 07/29/24 06:45 Total Bilirubin 0.6 mg/dL (0.15-1.2) 07/29/24 06:45 AST 38 U/L (0-40) 07/29/24 06:45 ALT 33 U/L (0-41) 07/29/24 06:45 Alkaline Phosphatase 74 U/L (40-130) 07/29/24 06:45 Total Protein 7.6 g/dL (6.6-8.7) 07/29/24 06:45 Albumin 4.6 g/dL (3.5-5.2) 07/29/24 06:45 Globulin 3.0 g/dL (1.3-4.6) 07/29/24 06:45 Salicylates < 0.3 mg/dL (3-10) L 07/29/24 06:45 Acetaminophen < 5.0 ug/mL (10-30) L 07/29/24 06:45 No radiology studies performed this visit Discharge Plan Discharge Patient Disposition: Admitted As Inpatient Clinical Impression: Acute psychosis Condition: Stable Coding Level of Care Code ED Slide Machine Tender for Rose Holland
--- NOTE | 2024-07-29 06:35 | ECG_ITS ---
[facility] Test Date: 2024-07-29 Pat Name: Sunday Walsh Department: Room: Gender: Male Program Engineer: : [id number] Requested By: Nilay Arango Order Number: [id number] Alma Rosa MD: Saira Mueller M.D. Measurements Intervals [place] Rate: 107 P: 15 NE: 160 QRS: -13 QRSD: 105 T: 36 QT: 409 QTc: 546 Interpretive Statements SINUS TACHYCARDIA MODERATE VOLTAGE CRITERIA FOR LVH, CONSIDER NORMAL VARIANT [MEETS CRITERIA IN ONE OF: R(aVL), S(V1), R(V5), R(V5/V6)+S(V1)] POSSIBLE ANTERIOR MYOCARDIAL INFARCTION , OF INDETERMINATE AGE [30 ms Q WAVE IN V3/V4, OR R < 0.2 mV IN V4] No previous ECG available for comparison Electronically Signed On 07-29-2024 18:16:05 CDT by Saira Mueller M.D. [id number] f
[2024-07-29 06:43] VITALS: PULSE 107; RESP 16; O2SAT 99
[2024-07-29 06:52] LABS: Basophils % 0.3 %; Eosinophils # 0.1 10^3/uL (0.0-0.8); Eosinophils % 0.7 %; Hematocrit 38.9 % (37-53); Lymphocytes # 1.1 10^3/uL (0.8-4.8); Lymphocytes % 10.6 %; Mean Corpuscular HGB Conc 32.9 g/dL (30-55); Mean Corpuscular Hemoglobin 28.2 pg (27-33); Mean Corpuscular Volume 85.7 fl (82-101); Mean Platelet Volume 10.8 fL (7.4-10.4); Monocytes # 0.9 10^3/uL (0.2-0.9); Monocytes % 8.9 %; Neutrophils % 79.2 %; Nucleated Red Blood Cells % 0 %; Platelet Count 244 10^3/cmm (157-399); Red Blood Count 4.54 10^6/uL (3.85-5.65); Red Cell Distribution Width 13.4 % (12.1-15.1); White Blood Count 10.47 10^3/uL (3.29-11.43)
[2024-07-29 07:13] LABS: Alanine Aminotransferase 33 U/L (0-41); Albumin Level 4.6 g/dL (3.5-5.2); Alkaline Phosphatase 74 U/L (40-130); Anion Gap 19.4 (5-19); Aspartate Amino Transferase 38 U/L (0-40); Blood Urea Nitrogen 28 mg/dL (6-20); Calcium 9.2 mg/dL (8.5-10.5); Carbon Dioxide 19 mmol/L (22-29); Chloride 101 mmol/L (98-107); Creatinine Clr Calc Pharmacy 103.5804; Glomerular Filtration Rate 62.5 mL/min (90-130); Glucose 122 mg/dL (65-115); Osmolality Calculated 289 mOsm/kg (285-295); Potassium 3.4 mmol/L (3.5-5.1); Sodium 136 mmol/L (136-145); Total Bilirubin 0.6 mg/dL (0.15-1.2); Total Protein 7.6 g/dL (6.6-8.7)
[2024-07-29 07:15] LABS: Acetaminophen < 5.0 ug/mL (10-30); Salicylate < 0.3 mg/dL (3-10)
[2024-07-29] MEDS: sodium chloride 0.9% 1,000 ML 999 ML IV (08:22)
[2024-07-29 08:23] VITALS: PULSE 103; RESP 16; O2SAT 95
--- NOTE | 2024-07-29 09:18 | PC.NURSE ---
96 hr rights reviewed @0910 with [facility] security officers Eliezer Durán, and Eliezer Mahoney. All questions answered at this time. No verbalized concerns or needs to HS at time rights were reviewed with patient. Patient copy left @bedside with pt. Water also provided at the end of rights being reviewed.
[2024-07-29 14:40] LABS: Alcohol Level < 10 mg/dL (0-10)
[2024-07-29 16:06] LABS: Charge for UA Resulting for Rev
[2024-07-29 16:11] LABS: Bilirubin Urine Negative (Negative); Blood Urine Negative (Negative); Glucose Urine UA Negative (Normal); Ketones Urine Trace (Negative); Leukocyte Esterase Urine Negative (Negative); Nitrate Urine Negative (Negative); Protein Urine Trace (Negative); Specific Gravity, Urine 1.029 (1.005-1.030); Urine Appearance Clear (CLEAR); Urine Color Yellow (Yellow)
[2024-07-29 16:17] LABS: Bacteria Urine None Seen /hpf; Hyaline Casts Urine 8.67 /lpf; RBC Urine 0-2 /hpf (0-2); Squamous Epithelial Cell Urine 0-5 /hpf (0-5); WBC Urine 0-5 /hpf (0-5)
[2024-07-29 16:22] LABS: Amphetamines Screen Urine Positive (Negative); Barbiturates Screen Urine Negative (Negative); Benzodiazepines Screen Urine Negative (Negative); Cocaine Screen Urine Negative (Negative); Opiate Screen Urine Negative (Negative); PCP Screen Urine Negative (Negative); SARS Covid-2 Antigen negative (Negative); THC Screen Urine Positive (Negative)
[2024-07-29 16:26] LABS: Influenza A by IFA Negative (Negative); Influenza B by IFA Negative (Negative)
[2024-07-29 16:41] LABS: UA Slide Review UA Slide Review Perf
[2024-07-30] VITALS: PULSE 71; O2SAT 96
--- NOTE | 2024-07-30 00:16 | PC.NURSE ---
SODA PROVIDED AT PT REQUEST, PT DENIES OTHER NEEDS. PT FELL RIGHT BACK TO SLEEP.
== END 2024-07-30 09:47 ==
PROVIDERS: Emergency Provider Family Medicine
DX: F23 Brief psychotic disorder (principal)
CPT/HCPCS: 36415; 80053; 80306; 80307; 81003; 81015; 85025; 87426; 87804; 93005; 99285; J7030

== ENCOUNTER 2025-04-04 13:32 | Emergency (ER) | payer MEDICARE, SELFPAY ==
[2025-04-04 13:34] VITALS: BP 146/61; PULSE 89; RESP 20; TEMP 36.6; O2SAT 97; BMI 35.2
--- NOTE | 2025-04-04 13:57 | PC.NURSE ---
96 hr rights reviewed with pt @1971 with assistance of [facility] network security administrator Reginald. All education reviewed with pt at this time. Pt verbalized a complaint in how his name was printed on form. Pt stated his name was not Sunday, but was Joe and argued that we ([facility] Staff) were trying to use codes to get into his head. Pt remained calm when voicing his concerns, but was adamant in the fact that staff was trying to control his thoughts with the words printed on patient rights form. Pt was reassured that we were here to help. Pt was given his patient copy, and provided a couple of sandwiches and a soda. No further needs verbalized to HS at this time.
--- NOTE | 2025-04-04 14:03 | PC.PHAR ---
Med rec completed via Pharmacies last filled at with dosage and days supply.
[2025-04-04 14:16] LABS: Basophils % 0.5 %; Eosinophils # 0.2 10^3/uL (0.0-0.8); Hematocrit 39.5 % (37-53); Lymphocytes # 1.4 10^3/uL (0.8-4.8); Lymphocytes % 23.6 %; Mean Corpuscular HGB Conc 33.2 g/dL (30-55); Mean Corpuscular Hemoglobin 28.7 pg (27-33); Mean Corpuscular Volume 86.6 fl (82-101); Mean Platelet Volume 10.6 fL (7.4-10.4); Monocytes # 0.5 10^3/uL (0.2-0.9); Monocytes % 8.1 %; Neutrophils % 64.5 %; Nucleated Red Blood Cells % 0 %; Platelet Count 212 10^3/cmm (157-399); Red Blood Count 4.56 10^6/uL (3.85-5.65); Red Cell Distribution Width 13.2 % (12.1-15.1); White Blood Count 6.05 10^3/uL (3.29-11.43)
[2025-04-04] MEDS: water for injection-sterile 10 ML 2.1 ML (14:43)
[2025-04-04] MEDS: OLANZapine 10 mg VIAL IM (14:43)
[2025-04-04 14:49] LABS: Acetaminophen < 5.0 ug/mL (10-30); Alanine Aminotransferase 25 U/L (0-41); Albumin Level 4.3 g/dL (3.5-5.2); Alcohol Level < 10 mg/dL (0-10); Alkaline Phosphatase 78 U/L (40-130); Anion Gap 15.9 (5-19); Aspartate Amino Transferase 26 U/L (0-40); Blood Urea Nitrogen 15 mg/dL (6-20); Calcium 8.9 mg/dL (8.5-10.5); Carbon Dioxide 23 mmol/L (22-29); Chloride 102 mmol/L (98-107); Creatinine Clr Calc Pharmacy 193.4185; Globulin 2.7 g/dL (1.3-4.6); Glomerular Filtration Rate 127.6 mL/min (90-130); Glucose 125 mg/dL (65-115); Osmolality Calculated 286 mOsm/kg (285-295); Potassium 3.9 mmol/L (3.5-5.1); Salicylate < 0.3 mg/dL (3-10); Sodium 137 mmol/L (136-145); Thyroid Stimulating Hormone 1.56 uIU/mL (0.27-4.20); Total Bilirubin 0.4 mg/dL (0.15-1.2)
--- NOTE | 2025-04-04 15:14 | W.ED.PSYCHS ---
HPI - Psych General: Chief Complaint: Psychiatric Symptoms Stated Complaint: 96 Time Seen by Provider: 04/04/25 13:35 History of Present Illness: 34-year-old male past medical history of meth and psychiatric history. Patient is brought in by police department in custody and under a 96-hour hold, he was picked up inside his street, has been or disorganized speech incoherent hallucinating. Upon arrival. Patient states that his name is Joe he does not want to be called by his other name. He denies suicidal ideation but he is incoherent nonsensical endorses marijuana use otherwise denies acute complaints, has chronic back pain for which he takes tramadol. He states he is had benzodiazepines in the past as well as Zyprexa. He is not currently taking any medications Related Data Home Medications ?Medication ?Instructions ?Recorded ?Confirmed aripiprazole 20 mg tablet 20 mg PO BEDTIME 04/04/25 04/04/25 hydroxyzine pamoate 50 mg capsule 50 mg PO Q6H PRN Anxiety 04/04/25 04/04/25 trazodone 50 mg tablet 50 mg PO BEDTIME PRN Sleep 04/04/25 04/04/25 Allergies Allergy/AdvReac Type Severity Reaction Status Date / Time Unable to Assess Allergy Verified 05/13/24 11:45 Review of Systems General: Reports: Other (Patient answers no to all questions, is under the influence) Const: Denies: fever(s) or chills Card: Denies: chest pain Resp: Denies: dyspnea GI: Denies: abdominal pain : Denies: dysuria, urinary frequency or urinary urgency Musc: Denies: neck pain Neuro: Denies: numbness in extremities or weakness in extremities Physical Exam Const: GENERAL APPEARANCE: cooperative and disheveled ORIENTATION/CONSCIOUSNESS: Yes awake HENMT: COMMON NORMALS: normocephalic, atraumatic and hearing grossly normal bilaterally HEAD & SCALP: normocephalic and atraumatic Resp: COMMON NORMALS: normal respiratory effort, No retractions, No use of accessory muscles and clear to auscultation bilaterally AUSCULTATION: clear to auscultation bilaterally Cardio: COMMON NORMALS: regular rate, regular rhythm and No murmurs present (Cardio) RATE: regular rate RHYTHM: regular rhythm GI: COMMON NORMALS: Soft to palpation and No hepatosplenomegaly present AUSCULTATION: Yes normoactive bowel sounds PALPATION: Yes Soft to palpation, No Tenderness to palpation present (GI), No Guarding due to palpation present (GI) and Yes No hepatosplenomegaly present Extremity: COMMON NORMALS: normal to inspection, capillary refill normal, no clubbing, cyanosis or edema, no calf tenderness and no pedal edema Psych: APPEARANCE: Yes unkempt SPEECH: Yes excessive THOUGHT PROCESS: disorganized, Loose association thought process present and Tangential thought process present Skin: COMMON NORMALS: no rashes or lesions noted GENERAL SKIN EXAM: no rashes or lesions noted Course Vital Signs: Vital signs: Vital Signs Temperature 97.8 F 04/04/25 13:34 Pulse Rate 89 04/04/25 13:34 Respiratory Rate 20 H 04/04/25 13:34 Blood Pressure 146/61 04/04/25 13:34 Pulse Oximetry 97 04/04/25 13:34 Oxygen Delivery Me thod Room Air 04/04/25 13:34 MDM - Psych Medical Decision Making Medical clearance labs obtained demonstrate no significant abnormality. Patient is medically cleared for psych admission. Urine drug screen has been sent to lab and is pending. Case discussed with psychiatry Dr. Baxter who agrees patient ought to be on a 6-hour hold and bring him inpatient psych. Lab Data 04/04/25 14:10 04/04/25 14:10 Laboratory Results WBC 6.05 10^3/uL (3.29-11.43) 04/04/25 14:10 RBC 4.56 10^6/uL (3.85-5.65) 04/04/25 14:10 Hgb 13.10 g/dL (11.27-16.99) 04/04/25 14:10 Hct 39.5 % (37-53) 04/04/25 14:10 MCV 86.6 fl (82-101) 04/04/25 14:10 MCH 28.7 pg (27-33) 04/04/25 14:10 MCHC 33.2 g/dL (30-55) 04/04/25 14:10 RDW 13.2 % (12.1-15.1) 04/04/25 14:10 Plt Count 212 10^3/cmm (157-399) 04/04/25 14:10 MPV 10.6 fL (7.4-10.4) H 04/04/25 14:10 Neut % (Auto) 64.5 % 04/04/25 14:10 Lymph % (Auto) 23.6 % 04/04/25 14:10 [place] % (Auto) 8.1 % 04/04/25 14:10 Eos % (Auto) 3.0 % 04/04/25 14:10 Baso % (Auto) 0.5 % 04/04/25 14:10 Neut # (Auto) 3.90 10^3/uL (1.8-7.7) 04/04/25 14:10 Lymph # (Auto) 1.4 10^3/uL (0.8-4.8) 04/04/25 14:10 [place] # (Auto) 0.5 10^3/uL (0.2-0.9) 04/04/25 14:10 Eos # (Auto) 0.2 10^3/uL (0.0-0.8) 04/04/25 14:10 Baso # (Auto) 0.0 10^3/uL (0.0-0.1) 04/04/25 14:10 Nucleated RBC % (auto) 0 % 04/04/25 14:10 Nucleated RBCs # 0.0 /100WBC 04/04/25 14:10 Sodium 137 mmol/L (136-145) 04/04/25 14:10 Potassium 3.9 mmol/L (3.5-5.1) 04/04/25 14:10 Chloride 102 mmol/L (98-107) 04/04/25 14:10 Carbon Dioxide 23 mmol/L (22-29) 04/04/25 14:10 Anion Gap 15.9 (5-19) 04/04/25 14:10 BUN 15 mg/dL (6-20) 04/04/25 14:10 Creatinine 0.7 mg/dL (0.7-1.2) 04/04/25 14:10 GFR Calculation 127.6 mL/min (90-130) 04/04/25 14:10 Glucose 125 mg/dL (65-115) H 04/04/25 14:10 Calculated Osmolality 286 mOsm/kg (285-295) 04/04/25 14:10 Calcium 8.9 mg/dL (8.5-10.5) 04/04/25 14:10 Total Bilirubin 0.4 mg/dL (0.15-1.2) 04/04/25 14:10 AST 26 U/L (0-40) 04/04/25 14:10 ALT 25 U/L (0-41) 04/04/25 14:10 Alkaline Phosphatase 78 U/L (40-130) 04/04/25 14:10 Total Protein 7.0 g/dL (6.6-8.7) 04/04/25 14:10 Albumin 4.3 g/dL (3.5-5.2) 04/04/25 14:10 Globulin 2.7 g/dL (1.3-4.6) 04/04/25 14:10 TSH 1.56 uIU/mL (0.27-4.20) 04/04/25 14:10 Salicylates < 0.3 mg/dL (3-10) L 04/04/25 14:10 Acetaminophen < 5.0 ug/mL (10-30) L 04/04/25 14:10 Ethyl Alcohol < 10 mg/dL (0-10) 04/04/25 14:10 No radiology studies performed this visit Discharge Plan Discharge Patient Disposition: Admitted As Inpatient Clinical Impression: Acute psychosis Condition: Stable Coding Level of Care Code ED Director Presales for Rose Holland
[2025-04-04 15:22] LABS: Amphetamines Screen Urine Negative (Negative); Barbiturates Screen Urine Negative (Negative); Benzodiazepines Screen Urine Negative (Negative); Cocaine Screen Urine Negative (Negative); Opiate Screen Urine Negative (Negative); PCP Screen Urine Negative (Negative); THC Screen Urine Positive (Negative)
--- NOTE | 2025-04-04 15:49 | ECG_ITS ---
[facility] Test Date: 2025-04-04 Pat Name: Sunday Walsh Department: Room: EDIP Gender: Male Scale Attendant: : 1990 Requested By: Jessica Yun Order Number: [id number] Alma Rosa MD: Saira Mueller M.D. Measurements Intervals [place] Rate: 65 P: 33 [place]: 197 QRS: -13 QRSD: 103 T: 1 QT: 422 QTc: 440 Interpretive Statements SINUS RHYTHM WITH OCCASIONAL VENTRICULAR PREMATURE COMPLEXES Compared to ECG 07/29/2024 06:35:35 Ventricular premature complex(es) now present Sinus tachycardia no longer present Myocardial infarct finding no longer present Electronically Signed On 04-05-2025 17:45:03 CDT by Saira Mueller M.D. [email or web address] [id number]
--- NOTE | 2025-04-04 15:49 | XR_ITS ---
WS: [id number] XR chest 1V portable [id number] REASON FOR EXAM: med clearance FINDINGS: Normal thoracic aorta. Mild cardiomegaly. Minimal calcified granulomatous disease bilaterally. No acute pulmonary parenchymal or pleural abnormality is identified. Significant degenerative spondylosis in the mid and lower thoracic spine for age. XR/XR chest 1V portable [id number] IMPRESSION: Mild cardiomegaly.
--- NOTE | 2025-04-04 16:42 | ED.C_ITS ---
HPI - Psych 2 General: Chief Complaint: Psychiatric Symptoms Stated Complaint: 96 Time Seen by Provider: 04/04/25 13:35 Related Data Home Medications ?Medication ?Instructions ?Recorded ?Confirmed aripiprazole 20 mg tablet 20 mg PO BEDTIME 04/04/25 hydroxyzine pamoate 50 mg capsule 50 mg PO Q6H PRN Anx iety 04/04/25 04/04/25 trazodone 50 mg tablet 50 mg PO BEDTIME PRN Sleep 0 04/04/25 04/04/25 Allergies Allergy/AdvReac Type Severity Reaction Status Date / Time Unable to Assess Allergy Verified 05/13/24 11:45 Course 2 Vital Signs: Vital signs: Vital Signs Temperature 97.8 F 04/04/25 13:34 Pulse Rate 78 04/04/25 22:32 Respiratory Rate 16 04/04/25 22:32 Blood Pressure 138/79 04/04/25 22:32 Pulse Oximetry 98 04/04/25 22:32 Oxygen Delivery Me thod Room Air 04/04/25 13:34 MDM - Psych Lab Data 04/04/25 14:10 04/04/25 14:10 Radiology Impressions Chest X-Ray 04/04/25 15:49 IMPRESSION: Mild cardiomegaly. Laboratory Results WBC 6.05 10^3/uL (3.29-11.43) 04/04/25 14:10 RBC 4.56 10^6/uL (3.85-5.65) 04/04/25 14:10 Hgb 13.10 g/dL (11.27-16.99) 04/04/25 14:10 Hct 39.5 % (37-53) 04/04/25 14:10 MCV 86.6 fl (82-101) 04/04/25 14:10 MCH 28.7 pg (27-33) 04/04/25 14:10 MCHC 33.2 g/dL (30-55) 04/04/25 14:10 RDW 13.2 % (12.1-15.1) 04/04/25 14:10 Plt Count 212 10^3/cmm (157-399) 04/04/25 14:10 MPV 10.6 fL (7.4-10.4) H 04/04/25 14:10 Neut % (Auto) 64.5 % 04/04/25 14:10 Lymph % (Auto) 23.6 % 04/04/25 14:10 [place] % (Auto) 8.1 % 04/04/25 14:10 Eos % (Auto) 3.0 % 04/04/25 14:10 Baso % (Auto) 0.5 % 04/04/25 14:10 Neut # (Auto) 3.90 10^3/uL (1.8-7.7) 04/04/25 14:10 Lymph # (Auto) 1.4 10^3/uL (0.8-4.8) 04/04/25 14:10 [place] # (Auto) 0.5 10^3/uL (0.2-0.9) 04/04/25 14:10 Eos # (Auto) 0.2 10^3/uL (0.0-0.8) 04/04/25 14:10 Baso # (Auto) 0.0 10^3/uL (0.0-0.1) 04/04/25 14:10 Nucleated RBC % (auto) 0 % 04/04/25 14:10 Nucleated RBCs # 0.0 /100WBC 04/04/25 14:10 Sodium 137 mmol/L (136-145) 04/04/25 14:10 Potassium 3.9 mmol/L (3.5-5.1) 04/04/25 14:10 Chloride 102 mmol/L (98-107) 04/04/25 14:10 Carbon Dioxide 23 mmol/L (22-29) 04/04/25 14:10 Anion Gap 15.9 (5-19) 04/04/25 14:10 BUN 15 mg/dL (6-20) 04/04/25 14:10 Creatinine 0.7 mg/dL (0.7-1.2) 04/04/25 14:10 GFR Calculation 127.6 mL/min (90-130) 04/04/25 14:10 Glucose 125 mg/dL (65-115) H 04/04/25 14:10 Calculated Osmolality 286 mOsm/kg (285-295) 04/04/25 14:10 Calcium 8.9 mg/dL (8.5-10.5) 04/04/25 14:10 Total Bilirubin 0.4 mg/dL (0.15-1.2) 04/04/25 14:10 AST 26 U/L (0-40) 04/04/25 14:10 ALT 25 U/L (0-41) 04/04/25 14:10 Alkaline Phosphatase 78 U/L (40-130) 04/04/25 14:10 Total Protein 7.0 g/dL (6.6-8.7) 04/04/25 14:10 Albumin 4.3 g/dL (3.5-5.2) 04/04/25 14:10 Globulin 2.7 g/dL (1.3-4.6) 04/04/25 14:10 TSH 1.56 uIU/mL (0.27-4.20) 04/04/25 14:10 Salicylates < 0.3 mg/dL (3-10) L 04/04/25 14:10 Urine Opiates Screen Negative ng/mL (Negative) 04/04/25 15:08 Acetaminophen < 5.0 ug/mL (10-30) L 04/04/25 14:10 Ur Barbiturates Screen Negative ng/mL (Negative) 04/04/25 15:08 Ur Phencyclidine Scrn Negative ng/mL (Negative) 04/04/25 15:08 Ur Amphetamines Screen Negative ng/mL (Negative) 04/04/25 15:08 U Benzodiazepines Scrn Negative ng/mL (Negative) 04/04/25 15:08 Urine Cocaine Screen Negative ng/mL (Negative) 04/04/25 15:08 U Marijuana (THC) Screen Positive ng/mL (Negative) H 04/04/25 15:08 Ethyl Alcohol < 10 mg/dL (0-10) 04/04/25 14:10 Discharge Plan Discharge Patient Disposition: Admitted As Inpatient Admit Provider: Yousuf Garcia Clinical Impression: Acute psychosis Condition: Stable Coding Level of Care Code ED Saw[employer] Machine Operator for Rose Holland
[2025-04-04 17:06] LABS: Influenza A NEGATIVE (Negative); Influenza B NEGATIVE (Negative); Respiratory Syncytial Virus Ce NEGATIVE (Negative); SARS-CoV-2 PCR NEGATIVE (Negative)
--- NOTE | 2025-04-04 19:29 | PC.NURSE ---
[facility] called to evaluate pt for placement awaiting approval for transfer at this time.
[2025-04-04 22:32] VITALS: BP 138/79; PULSE 78; RESP 16; O2SAT 98
== END 2025-04-04 22:33 | disposition other institution (70) ==
LOC: ER 15:17 → ER IP 15:55
PROVIDERS: Emergency Provider Emergency Medicine
DX: F23 Brief psychotic disorder (principal)
CPT/HCPCS: 36415; 71045; 80053; 80306; 80307; 84443; 85025; 87637; 93005; 96372; J3490